=== PATIENT | female | born 1960 | race Caucasian/White ===

== ENCOUNTER 2017-03-01 13:50 | Outpatient (CLI) | payer BC | END 2017-03-01 13:51 | disposition home or self-care (01) | LOC: BICMAMMO 13:50 | PROVIDERS: ATTEND Obstetrics & Gynecology | DX: Z13.820 Encounter for screening for osteoporosis (principal); M81.0 Age-related osteoporosis without current pathological fracture | CPT/HCPCS: 77080 ==

== ENCOUNTER 2018-02-28 10:25 | Outpatient (CLI) | payer BC ==
--- NOTE | 2018-02-28 12:17 | BD ---
DEXA BONE DENSITY STUDY: Date: 02/28/18 HISTORY: Postmenopausal. FINDINGS: Lumbar Spine: BMD (g/cm2) L1 0.743 T-Score: -2.2 L2 0.773 T-Score: -2.3 L3 0.707 T-Score: -3.4 L4 0.744 T-Score: -2.9 Total 0.741 T-Score: -2.8 Left Femoral Neck: 0.513 T-Score: -3.0 Total Femur: 0.661 T-Score: -2.3 IMPRESSION: Osteoporosis of the left femoral neck and lumbar spine. In reviewing a previous 03/01/17 study, the T -Scores of the lumbar spine are minimally worsened from -2.7 to -2.8. The left femoral neck bone mine ral density has improved slightly from -3.2 to -3.0. POS: [facility]
== END 2018-02-28 10:26 | disposition home or self-care (01) ==
LOC: BICMAMMO 10:25
PROVIDERS: ATTEND Obstetrics & Gynecology
DX: Z13.820 Encounter for screening for osteoporosis (principal); M81.0 Age-related osteoporosis without current pathological fracture
CPT/HCPCS: 77080

== ENCOUNTER 2019-04-03 09:14 | Outpatient (CLI) | payer BC ==
--- NOTE | 2019-04-03 11:18 | BD ---
BONE DENSITOMETRY USING DEXA: HISTORY: Postmenopausal screening for osteoporosis. FINDINGS: Lumbar Spine: BMD (g/cm2) L1 0.737 T-Score: -2.3 Z-Score: -1.0 L2 0.755 T-Score: -2.5 Z-Score: -1.0 L3 0.685 T-Score: -3.6 Z-Score: -2.1 L4 0.713 T-Score: -2.2 Z-Score: -1.6 L1-L4 0.721 T-Score: -3.0 Z-Score: -1.5 Femoral Neck: 0.512 T-Score: -3.0 Z-Score: -1.7 Total Femur: 0.653 T-Score: -2.4 Z-Score: -1.4 There has been interval reduction of 4.7% in the BMD of the lumbar spine and a reduction of 1.2% in t he BMD of the proximal femur since 02/28/2018. Impression: Osteoporosis. POS: [facility]
== END 2019-04-03 09:15 | disposition home or self-care (01) ==
LOC: BICMAMMO 09:14
PROVIDERS: ATTEND Obstetrics & Gynecology
DX: Z13.820 Encounter for screening for osteoporosis (principal); M81.0 Age-related osteoporosis without current pathological fracture
CPT/HCPCS: 77080

== ENCOUNTER 2020-07-01 08:45 | Outpatient (CLI) | payer BC | END 2020-07-01 08:46 | disposition home or self-care (01) | LOC: BICMAMMO 08:45 | PROVIDERS: ATTEND Obstetrics & Gynecology | DX: Z13.820 Encounter for screening for osteoporosis (principal); M81.0 Age-related osteoporosis without current pathological fracture | CPT/HCPCS: 77080 ==